=== PATIENT | female | born 1950 | race Caucasian/White ===

== ENCOUNTER 2019-12-08 11:20 | Outpatient (CLI) | payer OTHER, SELFPAY ==
--- NOTE | ~2019-12-08 | MMUS_ITS ---
EXAMINATION: MM screen LT diag RT w marina, US breast RT limited HISTORY: Follow-up breast masses TECHNIQUE: Additional 3-D tomosynthesis images of the breasts were performed and synthetic 2-D images were generated. Digital screening left mammogram. CAD analysis was submitted and interpreted. High r esolution right breast ultrasound was performed. COMPARISON: Comparison to multiple prior studies sequentially, with oldest reviewed study dated 04/01. FINDINGS: MAMMOGRAPHIC FINDINGS: Breast composed of scattered areas of fibroglandular density. There are focal asymmetries in the suba reolar location of the right breast. No suspicious calcifications or architectural distortion. No alina mographic evidence for malignancy in the left breast. ULTRASOUND: Right breast ultrasound: At 9:00, 4 cm from the nipple, there is a 3 mm cyst. At 9:00, 3 cm from the nipple, there is a cluste r of microcysts, likely corresponding to the asymmetry seen on mammogram. At 9:00, 3 cm from the nipp le there is a 4 mm cyst. At 10:00, 2 cm from the nipple, there is an oval circumscribed hyperechoic m ass with linear internal septations, no internal vascularity or posterior features, consistent with a lipoma measuring 1 cm greatest dimension. At 11:00 near the nipple there is a 3 mm hyperechoic mass with similar internal characteristics, consistent with lipoma. No mammographic evidence for malignanc y. IMPRESSION: 1. No mammographic or sonographic evidence for malignancy. 2. Routine yearly screening mammogram and regular clinical breast examination are recommended. BI-RADS Category 2: Benign finding(s). Reviewed, dictated and finalized at location A. IMPRESSION: 1. No mammographic or sonographic evidence for malignancy. 2. Routine yearly screening mammogram and regular clinical breast examination a re recommended. BI-RADS Category 2: Benign finding(s).
== END 2019-12-08 11:21 | disposition home or self-care (01) ==
LOC: ANHIMG 11:24
PROVIDERS: PCP Internal Medicine; Visit Provider Internal Medicine
DX: R92.8 Other abnormal and inconclusive findings on diagnostic imaging of breast (principal); Z12.31 Encounter for screening mammogram for malignant neoplasm of breast
CPT/HCPCS: 76642; 77063; 77065; 77067

== ENCOUNTER → 2021-01-25 14:06 | Outpatient (CLI) | payer OTHER, SELFPAY ==
--- NOTE | ~2021-01-25 | MM_ITS ---
EXAMINATION: MM screening [facility] BI w marina HISTORY: Screening mammogram TECHNIQUE: Craniocaudal and mediolateral oblique 3-D tomosynthesis images were obtained and synthetic 2-D images were generated. CAD analysis was submitted and interpreted. COMPARISON: 12/08/2019 bilateral mammogram and limited right breast ultrasound 05/01/2019 and 10/08/2018 diagnostic right mammogram and limited right breast ultrasound 09/23/2018 bilateral digital screening mammogram BREAST PARENCHYMAL COMPOSITION: There are scattered areas of fibroglandular density. FINDINGS: There are scattered bilateral benign calcifications. There is a biopsy marker on the left. History of prior benign left breast biopsy. There is no evidence of suspicious mass, calcification, o r architectural distortion to suggest malignancy in either breast. There has been no suspicious inter jennifer change. IMPRESSION: 1. No mammographic evidence of malignancy. 2. Recommend routine screening mammography in one year. BI-RADS Category 2: Benign finding(s). Reviewed, dictated and finalized at location A.
== END ==
PROVIDERS: PCP Internal Medicine; Visit Provider Internal Medicine
DX: Z12.31 Encounter for screening mammogram for malignant neoplasm of breast (principal)
CPT/HCPCS: 77063; 77067

== ENCOUNTER → 2021-03-14 02:13 | Outpatient (CLI) | payer OTHER, SELFPAY ==
[2021-03-15 15:33] LABS: SARS-CoV-2 RNA PCR Positive
== END ==
PROVIDERS: PCP Internal Medicine; Visit Provider Internal Medicine
DX: U07.1 COVID-19 (principal)
CPT/HCPCS: C9803; U0003; U0005

== ENCOUNTER 2021-09-25 00:23 | Day surgery (SDC) | payer OTHER, SELFPAY ==
[2021-09-08 13:11] VITALS: BMI 26.6
[2021-09-25 09:09] VITALS: BP 102/61; PULSE 86; RESP 18; TEMP 36.4; O2SAT 98
[2021-09-25] MEDS: LACTATED RINGERS 1,000 ML 150 ML IV CONT (09:18)
--- NOTE | 2021-09-25 09:22 | WPDANESEPPF ---
Anes - Initial Pre Proc Eval Procedure: Operation Date: 09/25/21 10:30 Proposed Procedures p Screening Colonoscopy - Narendra Ventura MD Date/Time: 09/25/21 09:22 Surgeon: Narendra Ventura MD Pre Op Diagnosis: neoplasm screening Patient Data Age: 71 Gender: F Height: 1.55 m Weight: 64.7 kg Last Vital Signs Temp 97.6 F 09/25/21 09:09 Pulse 86 09/25/21 09:09 Resp 18 09/25/21 09:09 BP 102/61 09/25/21 09:09 Pulse Ox 98 09/25/21 09:09 Allergies Allergy/AdvReac Type Severity Reaction Status Date / Time Buxksue-VIT-RcU Reductase AdvReac Unknown Muscle Verified 09/25/21 09:08 Inhibitor Spasms [Drmcxki-Qbs-Ruy Reductase Inhibitor] Home Medications Medication Instructions Recorded Confirmed Type fluticasone propionate 50 1 spray INTRANASAL DAILY 06/15/21 09/08/21 History mcg/actuation nasal spray,suspension loratadine-pseudoephedrine ER 10 1 tablet PO DAILY 06/15/21 09/08/21 History mg-240 mg tablet,extended [id number] calcium carbonate [Antacid 200 mg PO DAILY 09/08/21 09/08/21 History (calcium carbonate)] cholecalciferol (vitamin D3) 25 mcg PO DAILY 09/08/21 09/08/21 History [Vitamin D3] coQ10 (ubiquinol) 100 mg PO DAILY 09/08/21 09/08/21 History cranberry pfpq-A-uxyhxmdj coag 1 tablet PO DAILY 09/08/21 09/08/21 History [Cranberry Urinary Tract Health] glucos sul 7IMz-qfp-ldybe-C-Mn 1 cap PO DAILY 09/08/21 09/08/21 History [Glucosamine Chondroitin] multivitamin [One Daily 1 tablet PO DAILY 09/08/21 09/08/21 History Multivitamin] psyllium husk [Metamucil] 0.52 g PO DAILY 09/08/21 09/08/21 History rosuvastatin 5 mg tablet 5 mg PO DAILY #90 tablet 09/13/21 09/25/21 Rx Patient hx anesthesia problems: none Family hx anesthesia problems: none Results Review: All pre-operative results and documents have been reviewed as part of the pre-operative evaluation. PMFSH Past Medical History Medical History (Updated 09/25/21 @ 09:20 by Sherwin Martinez MD) Arthritis Hyperlipidemia Family History Family History Mother Family history of chronic obstructive pulmonary disease Family history of lung disease Father Family history of atrial fibrillation Social History Social History Smoking status: Never smoker Second hand tobacco smoke exposure: No Alcohol intake: current Alcohol use details: 1-2 drinks per year Substance use: never Substance use type: does not use Living arrangements: alone Spiritual care concerns: No Anes - Eval Final PreProcedure Day of Procedure 09/25/21 09:22 Patient weight: normal Heart: regular rate and rhythm Lungs: clear to auscultation Airway: Mallampati scale class II Neurological: alert and oriented Last oral intake: >/= 8 hours ASA classification: II Emergent: no Anesthetic plan: proceed Anesthesia type and monitoring: general GIVS and standard monitoring Results Review: All pre-operative results and documents have been reviewed as part of the pre-operative evaluation. Informed Consent: The patient's anesthetic plan and its attendant risks and benefits were discussed with the patient/family/POA. Questions were solicited and answers provided to the satisfaction of the patient/family/POA.
--- NOTE | 2021-09-25 09:36 | PM.HPGS ---
History of Present Illness History of Present Illness Consent: Risks, benefits, and alternatives have been discussed and questions answered. Patient agrees to proceed with procedure. Chief complaint: neoplasm screening Narrative: Makayla Jerome is a 71 year old female here for screening colonoscopy, last one 2010 Review of Systems Constitutional: Constitutional: Denies headache(s) and Denies weakness Eyes: Eyes: Denies blurry vision ENT: Reports Normal hearing present, Denies headache(s) and Denies neck pain Cardiovascular: Cardiovascular: Denies chest pain and Denies dyspnea Respiratory: Respiratory: Denies dyspnea Gastrointestinal: Gastrointestinal: Reports no additional gastrointestinal complaints Genitourinary: Genitourinary: Denies dysuria Musculoskeletal: Musculoskeletal: Denies neck pain Integumentary/Breasts: Skin/Breast: Denies dry skin Neurologic: Reports Normal hearing present, Denies headache(s) and Denies weakness Psychiatric: Psychiatric: Denies anxiety Endocrine: Endocrine: Denies change in body appearance Hematologic/Lymphatic: Hematologic/Lymphatic: Denies easy bleeding Allergic/Immunologic: Allergic/Immunologic: Denies urticaria PMFSH Past Medical History Medical History (Updated 09/25/21 @ 09:20 by Sherwin Martinez MD) Arthritis Hyperlipidemia Family History Family History Mother Family history of chronic obstructive pulmonary disease Family history of lung disease Father Family history of atrial fibrillation Social History Social History Smoking status: Never smoker Second hand tobacco smoke exposure: No Alcohol intake: current Alcohol use details: 1-2 drinks per year Substance use: never Substance use type: does not use Living arrangements: alone Spiritual care concerns: No Meds Home Medications and Allergies Home Medications Medication Instructions Recorded Confirmed Type fluticasone propionate 50 1 spray INTRANASAL DAILY 06/15/21 09/08/21 History mcg/actuation nasal spray,suspension loratadine-pseudoephedrine ER 10 1 tablet PO DAILY 06/15/21 09/08/21 History mg-240 mg tablet,extended [id number] calcium carbonate [Antacid 200 mg PO DAILY 09/08/21 09/08/21 History (calcium carbonate)] cholecalciferol (vitamin D3) 25 mcg PO DAILY 09/08/21 09/08/21 History [Vitamin D3] coQ10 (ubiquinol) 100 mg PO DAILY 09/08/21 09/08/21 History cranberry zmep-C-niaegaix coag 1 tablet PO DAILY 09/08/21 09/08/21 History [Cranberry Urinary Tract Health] glucos sul 6MPy-teb-bycxi-C-Mn 1 cap PO DAILY 09/08/21 09/08/21 History [Glucosamine Chondroitin] multivitamin [One Daily 1 tablet PO DAILY 09/08/21 09/08/21 History Multivitamin] psyllium husk [Metamucil] 0.52 g PO DAILY 09/08/21 09/08/21 History rosuvastatin 5 mg tablet 5 mg PO DAILY #90 tablet 09/13/21 09/25/21 Rx Allergies Allergy/AdvReac Type Severity Reaction Status Date / Time Ldxgjtx-DCJ-VqA Reductase AdvReac Unknown Muscle Verified 09/25/21 09:08 Inhibitor Spasms [Xjxiiag-Rwc-Yzs Reductase Inhibitor] Vital Signs Vital Signs - 24 hr 09/25/21 09:09 Temperature 97.6 F Pulse Rate 86 Respiratory Rate 18 Blood Pressure 102/61 Pulse Oximetry 98 Exam Const: General: comfortable and no acute distress HENMT: General nose exam: Normal nares present Eyes: General: appearance normal, both eyes and all related structures Neck: Neck: no JVD Resp: Auscultation: clear to auscultation bilaterally Cardio: Rate: regular rate Rhythm: regular rhythm GI: Inspection: non-distended GI Palp: Yes Soft to palpation Skin: General skin exam: normal color Neuro: General: gait normal Speech: normal speech Extrem: General: normal to inspection Psych: Mental Status: mental status grossly normal Assessment and Plan Assessment and plan
[2021-09-25 09:51] VITALS: BP 100/57; PULSE 72; RESP 18; O2SAT 97
[2021-09-25 10:01] VITALS: BP 104/53; PULSE 68; RESP 23; O2SAT 98
[2021-09-25 10:11] VITALS: BP 105/71; PULSE 62; RESP 14; O2SAT 98
== END 2021-09-25 10:23 | disposition home or self-care (01) ==
PROVIDERS: PCP Internal Medicine; Visit Provider Internal Medicine Gastroenterology
PROC: 0DJD8ZZ Inspection of Lower Intestinal Tract, Via Natural or Artificial Opening Endoscopic (ICD-10-PCS; CPT 45378; principal; 2021-09-25 10:30)
DX: Z12.11 Encounter for screening for malignant neoplasm of colon (principal); D12.2 Benign neoplasm of ascending colon; K64.8 Other hemorrhoids; M19.90 Unspecified osteoarthritis, unspecified site; E78.5 Hyperlipidemia, unspecified
CPT/HCPCS: 45385; 88305; J2704; J7120

== ENCOUNTER → 2021-09-26 09:34 | Outpatient (CLI) | payer OTHER, SELFPAY ==
--- NOTE | ~2021-09-26 | DEXA_ITS ---
Bone Density Report Name: DOUG GARCIA Age: 71 Sex: Female Ethnicity: White Date of : 1950 Indication: postmenopausal; screening for osteoporosis; hysterectomy; Referring Provider: MORALES FINCH Study: Bone densitometry was performed. Exam Date: September 26, 2021 Accession number: [id number] Bone Density: Region BMD T-score Z-score Classification AP Spine (L1-L4) 0.985 -0.6 1.5 Normal Femoral Neck (Left) 0.719 -1.2 0.6 Osteopenia Total Hip (Left) 0.917 -0.2 1.2 Normal Femoral Neck (Right) 0.737 -1.0 0.7 Normal Total Hip (Right) 0.902 -0.3 1.1 Normal Total Hip Mean 0.910 -0.3 1.2 Normal World Health Organization criteria for BMD impression classify patients as: Normal (T-score at or above -1.0), Osteopenia (T-score between -1.0 and -2.5), or Osteoporosis (T-score at or below -2.5). 10-year Fracture Risk(1): Major Osteoporotic Fracture 9.0% Hip Fracture 1.0% Reported Risk Factors: [place] (), Neck BMD=0.719, BMI=28.0 (1) FRAX(R) Version 3.08. Fracture probability calculated for an untreated patient. Fracture probability may be lower if the patient has received treatment. Previous Exams: Region Exam Age BMD T-score BMD Change BMD Change Date g/cm2 vs Baseline vs Previous AP Spine(L1-L4) 09/26/2021 71 0.985 -0.6 0.049* 0.049* 09/23/2018 68 0.936 -1.0 Total Hip(Left) 09/26/2021 71 0.917 -0.2 0.014 0.014 09/23/2018 68 0.903 -0.3 Total Hip(Right) 09/26/2021 71 0.902 -0.3 -0.007 -0.007 09/23/2018 68 0.909 -0.3 *Denotes significance at 95% confidence level, LSC for AP Spine = 0.022 g/cm2, LSC for Total Hip = 0.027 g/cm2 Clinical Information Provided by Patient: Has used the following medications: Vitamin D, Calcium Has the following medical conditions: Hysterectomy Patient maximum height was 61 Menopause Age: 47 Drinks caffeinated beverages Onset of menses at age 15 Number of children 3 Impression: The patient has low bone mass, based on the Left Femoral Neck T-score. The patient has an estimated ten-year risk of hip fracture of 1% and an estimated ten-year risk of major fracture of 9%, based on the WHO FRAX algorithm. No significant bone loss was observed. Discussion: BONE DENSITY IS LOW AT ONE OR MORE SKELETAL SITES. This patient's lowest T-score is low at one or more skeletal sites. It meets the World Health Organization's (WHO) criter
== END ==
PROVIDERS: PCP Internal Medicine; Visit Provider Internal Medicine
DX: Z78.0 Asymptomatic menopausal state (principal); M85.852 Other specified disorders of bone density and structure, left thigh
CPT/HCPCS: 77080

== ENCOUNTER → 2022-03-27 12:45 | Outpatient (CLI) | payer OTHER, SELFPAY ==
--- NOTE | ~2022-03-27 | MM_ITS ---
EXAMINATION: MM screening [facility] BI w marina HISTORY: Screening TECHNIQUE: Craniocaudal and mediolateral oblique 3-D tomosynthesis images were obtained and synthetic 2-D images were generated. CAD analysis was submitted and interpreted. COMPARISON: Comparison to multiple prior studies sequentially, with oldest reviewed study dated 09/2016. BREAST PARENCHYMAL COMPOSITION: There are scattered areas of fibroglandular density. FINDINGS: There is no evidence of suspicious mass, calcification, or architectural distortion to sugg est malignancy in either breast. There has been no suspicious interval change. IMPRESSION: 1. No mammographic evidence of malignancy. 2. Recommend routine screening mammography in one year. BI-RADS Category 1: Negative Reviewed, dictated and finalized at location A.
== END ==
PROVIDERS: PCP Internal Medicine; Visit Provider Internal Medicine
DX: Z12.31 Encounter for screening mammogram for malignant neoplasm of breast (principal)
CPT/HCPCS: 77063; 77067

== ENCOUNTER → 2023-03-28 14:03 | Outpatient (CLI) | payer OTHER, SELFPAY ==
--- NOTE | ~2023-03-28 | MM_ITS ---
EXAMINATION: MM screening [facility] BI w marina HISTORY: Screening mammogram TECHNIQUE: Craniocaudal and mediolateral oblique 3-D tomosynthesis images were obtained and synthetic 2-D images were generated. CAD analysis was submitted and interpreted. COMPARISON: 03/27/2022, 01/25/2021 bilateral screening mammogram examinations BREAST PARENCHYMAL COMPOSITION: There are scattered areas of fibroglandular density. FINDINGS: Biopsy marker on the left; history of prior benign left breast biopsy. Scattered bilateral benign calcifications. There is no evidence of suspicious mass, calcification, or architectural distortion to suggest malignancy in either breast. There has been no suspicious interv al change. IMPRESSION: 1. No mammographic evidence of malignancy. 2. Recommend routine screening mammography in one year. BI-RADS Category 2: Benign finding(s). Reviewed, dictated and finalized at location A.
== END ==
DX: Z12.31 Encounter for screening mammogram for malignant neoplasm of breast (principal)
CPT/HCPCS: 77063; 77067

== ENCOUNTER 2024-03-30 10:02 | Outpatient (CLI) | payer OTHER, SELFPAY ==
--- NOTE | ~2024-03-30 | MM_ITS ---
EXAMINATION: MM screening [facility] BI w marina HISTORY: Screening TECHNIQUE: Craniocaudal and mediolateral oblique 3-D tomosynthesis images were obtained and synthetic 2-D images were generated. CAD analysis was submitted and interpreted. COMPARISON: Comparison to multiple prior studies sequentially, with oldest reviewed study dated 05/01. BREAST PARENCHYMAL COMPOSITION: FINDINGS: There is no evidence of suspicious mass, calcification, or architectural distortion to sugg est malignancy in either breast. There has been no suspicious interval change. IMPRESSION: 1. No mammographic evidence of malignancy. 2. Recommend routine screening mammography in one year. BI-RADS Category 1: Negative Reviewed, dictated and finalized at location B.
== END 2024-03-30 10:03 ==
LOC: MICIMG 10:03
DX: Z12.31 Encounter for screening mammogram for malignant neoplasm of breast (principal)
CPT/HCPCS: 77063; 77067

== ENCOUNTER 2025-04-01 10:10 | Outpatient (CLI) | payer OTHER, SELFPAY ==
--- NOTE | ~2025-04-01 | MM_ITS ---
EXAMINATION: MM screening [facility] BI w marina HISTORY: Screening TECHNIQUE: Craniocaudal and mediolateral oblique 3-D tomosynthesis images were obtained and synthetic 2-D images were generated. CAD analysis was submitted and interpreted. COMPARISON: Comparison to multiple prior studies sequentially, with oldest reviewed study dated 09/23/2018. BREAST PARENCHYMAL COMPOSITION: There are scattered areas of fibroglandular density. FINDINGS: There is no evidence of suspicious mass, calcification, or architectural distortion to suggest malignancy in either breast. Scattered benign-appearing calcifications are present. IMPRESSION: 1. No mammographic evidence of malignancy. 2. Recommend routine screening mammography in one year. BI-RADS Category 2: Benign finding(s). Reviewed, dictated and finalized at location B.
== END 2025-04-01 10:11 | disposition home or self-care (01) ==
LOC: MICIMG 10:14
PROVIDERS: PCP Family Medicine; Visit Provider Family Medicine
DX: Z12.31 Encounter for screening mammogram for malignant neoplasm of breast (principal)
CPT/HCPCS: 77063; 77067